=== PATIENT | male | born 1940 | race Caucasian/White ===

== ENCOUNTER 2022-11-27 06:28 | Day surgery (SDC) | payer OTHER ==
[2022-11-20 10:16] LABS: HEMATOCRIT 28.7 % (42-54); MEAN CORPUSCULAR HGB CONC 33.1 g/dL (32.0-36.0); MEAN CORPUSCULAR VOLUME 93.8 fL (79-99); RED BLOOD CELL COUNT(AUTO) 3.06 MIL/uL (4.50-6.20); WHITE BLOOD COUNT (AUTO) 6.4 K/uL (4.8-10.8)
[2022-11-20 10:34] LABS: CREATININE 4.8 mg/dL (0.5-1.5); POTASSIUM 4.1 mmol/L (3.5-5.1)
[2022-11-20 10:36] LABS: INR 0.97 (0.85-1.15); PROTHROMBIN TIME 10.6 SEC (9.6-11.6)
[2022-11-20 10:37] LABS: PARTIAL THROMBOPLASTIN TIME 25.6 SEC (26.3-35.5)
[2022-11-20 12:47] VITALS: BP 132/86
[2022-11-27] VITALS (18 sets, daily range): BP systolic 111–137; BP diastolic 52–64
[~2022-11-27] VITALS: Ht 170.2 cm; Wt 76.2 kg
[~2022-11-27 06:28] MED LIST: AEC81 PO; CEFAZOLIN SODIUM 2 GM VIAL IVPB ONE; FERS325 PO; FOLI1TAB85 PO; LOSA100T59 PO; TORS20TA4 PO
[2022-11-27 07:27] LABS: POTASSIUM 3.8 mmol/L (3.5-5.1)
[2022-11-27] MEDS ORDERED: BUPIVACAINE/PF 0.5% 30ML VIAL ONE (07:27)
[2022-11-27] MEDS ORDERED: CEFAZOLIN SODIUM 1 GM VIAL ONE (07:27)
[2022-11-27] MEDS ORDERED: LIDOCAINE HCL 1% MDV 50ML VIAL ONE (07:28)
[2022-11-27] MEDS ORDERED: LIDOCAINE HCL 1% 10 ML VIAL ONE (07:32)
[2022-11-27] MEDS ORDERED: LIDOCAINE PF 100MG/5ML (2%) SYRINGE 5ML ONE (08:16)
[2022-11-27] MEDS ORDERED: DEXAMETHASONE SOD PHOSPHATE 10MG/ML 1ML VIAL ONE (08:16)
[2022-11-27] MEDS ORDERED: SUCCINYLCHOLINE CHLORIDE 20 MG/ML 10 ML VIAL ONE (08:16)
[2022-11-27] MEDS ORDERED: ROCURONIUM 10MG/1ML SYR 10 MG/ML ML ONE (08:18)
[2022-11-27] MEDS ORDERED: GLYCOPYRROLATE 1 MG/5 ML SYRINGE ONE (08:18)
[2022-11-27] MEDS ORDERED: MIDAZOLAM HCL 1 MG/ML 2ML VIAL ONE (08:18)
[2022-11-27] MEDS ORDERED: NEOSTIGMINE 5MG/5ML SYR IV ONE (08:18)
[2022-11-27] MEDS ORDERED: PROPOFOL 10 MG/ML 20ML VIAL IV ONE (08:18)
[2022-11-27] MEDS ORDERED: FENTANYL CITRATE PF 50 MCG/1 ML 2ML VIAL ONE (08:19)
[2022-11-27] MEDS ORDERED: EPHEDRINE SULFATE 50 MG/ML AMPULE ONE (08:39)
[2022-11-27] MEDS ORDERED: ATROPINE 1MG SYG IVP ONE (08:40)
[2022-11-27] MEDS ORDERED: HEPARIN 10,000 UNIT/10ML (1,000 UNIT/ML) VIAL ONE (09:11)
[2022-11-27] MEDS ORDERED: PROTAMINE SULFATE 10 MG/ML 5 ML VIAL ONE (09:37)
[2022-11-27] MEDS ORDERED: SUGAMMADEX SODIUM 200 MG/2 ML VIAL IV ONE (09:53)
== END 2022-11-27 11:45 | disposition home or self-care (01) ==
LOC: DAH 06:28
PROVIDERS: ATTEND Thoracic Surgery (Cardiothoracic Vascular Surgery)
DX: E11.22 Type 2 diabetes mellitus with diabetic chronic kidney disease (principal); Z20.822 Contact with and (suspected) exposure to COVID-19; I12.0 Hypertensive chronic kidney disease with stage 5 chronic kidney disease or end stage renal disease; N18.6 End stage renal disease; E78.5 Hyperlipidemia, unspecified; G47.33 Obstructive sleep apnea (adult) (pediatric); M10.9 Gout, unspecified; Z98.890 Other specified postprocedural states; Z86.73 Personal history of transient ischemic attack (TIA), and cerebral infarction without residual deficits; Z79.82 Long term (current) use of aspirin; Z79.899 Other long term (current) drug therapy; Z95.5 Presence of coronary angioplasty implant and graft; Z99.2 Dependence on renal dialysis
CPT/HCPCS: 80048 ×2; 85027; 85610; 85730; 86850 ×2; 86900 ×2; 86901 ×2; 87426; 36415 ×2; 71045; 93005; 36821; A6260; A4510; A4663; J7030; A4452; J3010; J0690 ×2; J3490 ×4; J1100; J2710; J0330; J2001; J2720; J0461; J1644 ×2; J2250; J2704; G0168; A4649; C1713 ×2; A4215; A4223; A4222; A4221